=== PATIENT | male | born 1955 | race Caucasian/White ===

== ENCOUNTER → 2019-09-01 | Outpatient (CLI) | payer BC | END | disposition home or self-care (01) | LOC: SHCH 09:35 | PROVIDERS: ATTEND Internal Medicine Cardiovascular Disease | DX: I25.10 Atherosclerotic heart disease of native coronary artery without angina pectoris (principal) ==

== ENCOUNTER → 2020-04-14 | Outpatient (CLI) | payer BC ==
[~2020-04-14] MED LIST: ASPI-1443 PO; CLOP75TA14 PO; HYDR25TA PO; LEVO200T5 PO; OLME20TA10 PO
== END | disposition home or self-care (01) ==
LOC: SHCH 09:12
PROVIDERS: ATTEND Internal Medicine Cardiovascular Disease
DX: R60.9 Edema, unspecified (principal)
CPT/HCPCS: 93970

== ENCOUNTER → 2024-06-09 | Outpatient (CLI) | payer MEDICARE ==
[~2024-06-09] MED LIST changes: +CLOP-31 PO; -CLOP75TA14 PO; -OLME20TA10 PO; +OLME20TA73 PO
--- NOTE | 2024-06-09 11:14 | HMCIMG ---
RENAL ARTERY ULTRASOUND. COMPARISON: None available. FINDINGS: There is no significant aortic plaque, and the peak systolic velocity in the aorta is normal before and after the renal artery takeoff bilaterally. The highest peak systolic velocity of the renal arteries is normal bilaterally. Bilateral RAR's are within normal limits. IMPRESSION: No evidence of renal artery stenosis.
== END | disposition home or self-care (01) ==
LOC: RAH 10:05
PROVIDERS: ATTEND Nurse Practitioner
DX: I10 Essential (primary) hypertension (principal)
CPT/HCPCS: 76770; 93975

== ENCOUNTER → 2024-07-17 | Outpatient (CLI) | payer OTHER ==
--- NOTE | 2024-07-17 14:53 | HMCIMG ---
CT HEART SAVER PROMOTIONAL HISTORY: Calcium scoring COMPARISON: None TECHNIQUE: Computed tomography of the heart was performed with ECG gating and suspended respiration. Postprocessing was performed on a computer workstation to obtain diastolic phase images, determine calcium score and provide a quantitative assessment of extent of disease. This CT included only the heart. HeartSaver score is 1569.9. Please see cardiac calcium score report. The available CT chest images show no acute finding. CT was performed with one or more following dose reduction techniques: automated exposure control, adjustment of the mA and kv according to patient's size, or use of a iterative reconstruction technique.
== END | disposition home or self-care (01) ==
LOC: RAH 13:43
PROVIDERS: ATTEND Internal Medicine
DX: Z13.6 Encounter for screening for cardiovascular disorders (principal); I10 Essential (primary) hypertension
CPT/HCPCS: 75571